=== PATIENT | male | born 1970 | race African-American/Black ===

== ENCOUNTER 2018-01-04 15:02 | Emergency (ER) | payer MEDICAID ==
[~2018-01-04] VITALS: Ht 172.7 cm; Wt 74.8 kg
--- NOTE | 2018-01-04 15:50 | NUR ---
1st contact with patient- hands off report received from servicenow administrator developer Casie's notes, patient is AOx4, respiration:easy, patient is eating on the gurney at this time, NAD, no coughing heard at moment.
--- NOTE | 2018-01-04 18:01 | NUR ---
Patient is now waiting for the lab test result & disposition, no acute change seen
--- NOTE | 2018-01-04 18:24 | NUR ---
Hot dinner tray offered. Patient is eating with good appetite, pending "coags results" still
--- NOTE | 2018-01-04 18:39 | NUR ---
Patient discharged to home in stable conditon. Written and verbal after care instructions given to patient. Patient verbalizes understanding of instructions.
== END 2018-01-04 18:51 | disposition home or self-care (01) ==
LOC: EDBD 15:03 → ER 15:03
DX: S29.011A Strain of muscle and tendon of front wall of thorax, initial encounter (principal); J40 Bronchitis, not specified as acute or chronic; Z88.6 Allergy status to analgesic agent; Z79.01 Long term (current) use of anticoagulants; X58.XXXA Exposure to other specified factors, initial encounter; Y93.89 Activity, other specified; Y92.89 Other specified places as the place of occurrence of the external cause; Y99.8 Other external cause status
CPT/HCPCS: 36415; 71045; 85610; A4663